=== PATIENT | female | born 1980 | race Caucasian/White ===

== ENCOUNTER → 2022-12-18 07:57 | Outpatient (CLI) | payer OTHER, SELFPAY ==
[2022-12-18 08:44] LABS: Add Manual Diff / Slide Review NO; Basophils Absolute Auto 100 /uL (0-100); Eosinophils Absolute Auto 200 /uL (0-450); Hematocrit 41.7 % (36-46); Hemoglobin 14.1 g/dL (12.0-16.0); Lymphocytes Absolute Auto 1500 /uL (1100-4500); Lymphocytes Percent Auto 21.3 % (25-40); Mean Corpuscular HGB Conc 33.8 % (30-36); Mean Corpuscular Hemoglobin 29.3 PG (26-34); Mean Corpuscular Volume 86.6 fL (80-100); Monocytes Absolute Auto 500 /uL (0-900); Monocytes Percent Auto 7.5 % (3-14); Neutrophils Absolute Auto 4700 /uL (1500-7000); Neutrophils Percent Auto 67.2 % (50-75); Platelet Count 275 X10^3/uL (150-400); Red Blood Cell Count 4.81 X10^6/uL (4.0-5.2); Red Cell Distribution Width 13.8 % (11.6-14.8)
[2022-12-18 09:42] LABS: HEMOLYSIS < 15 (0-50); Iron 70 ug/dL (37-170)
[2022-12-18 09:52] LABS: Alanine Aminotransferase 18 IU/L (<35); Albumin 3.9 g/dL (3.5-5.0); Albumin Globulin Ratio 1.2 (1.0-2.8); Alkaline Phosphatase 101 U/L (38-126); Aspartate Aminotransferase 22 IU/L (14-36); BUN Creatinine Ratio 16.4 (6-22); Bilirubin Total 0.3 mg/dL (0.2-1.3); Blood Urea Nitrogen 11 mg/dL (7-17); Calcium 8.9 mg/dL (8.4-10.2); Carbon Dioxide 25 mmol/L (22-32); Chloride 101 mmol/L (98-107); Estimated Glomerular Filt Rate > 60 mL/min (>60); Globulin 3.3 g/dL (1.7-4.1); Glucose 97 mg/dL (70-100); HEMOLYSIS < 15 (0-50); Potassium 4.3 mmol/L (3.4-5.1); Sodium 137 mmol/L (137-145); Total Protein 7.2 g/dL (6.3-8.2)
[2022-12-18 09:53] LABS: Percent Iron Saturation 19 % (15-50); Total Iron Binding Capacity 366 ug/dL (265-497); Transferrin 283 mg/dL (206-381)
[2022-12-18 09:54] LABS: Free T3, Triiodothyronine Free 4.14 pg/mL (2.77-5.27); Free T4, Direct Thyroxine 1.09 ng/dL (0.78-2.19)
[2022-12-18 10:05] LABS: Vitamin D 25 Hydroxy (D3) 50.1 ng/mL (30.0-100.0)
[2022-12-18 10:08] LABS: Thyroid Stimulating Hormone 1.65 uIU/mL (0.47-4.68)
[2022-12-18 10:26] LABS: Ferritin 21 ng/mL (6-137)
[2022-12-18 10:41] LABS: Vitamin B12 694 pg/mL (239-931)
[2022-12-21 10:22] LABS: Insulin Level Total 8.1 uIU/mL (2.6-24.9)
[2022-12-24 05:52] LABS: Magnesium, RBC 5.3 mg/dL (4.2-6.8)
[2022-12-24 22:32] LABS: Folate, RBC >1455 ng/mL (>498); Hematocrit 42.6 % (34.0-46.6); Hemolysate >620.0 ng/mL (Not Estab.)
== END ==
PROVIDERS: PCP Family Medicine; Referring Provider Family Medicine; Visit Provider Family Medicine
DX: D53.9 Nutritional anemia, unspecified (principal); E03.9 Hypothyroidism, unspecified; E28.2 Polycystic ovarian syndrome; E55.9 Vitamin D deficiency, unspecified; E66.9 Obesity, unspecified; F32.A Depression, unspecified; F41.9 Anxiety disorder, unspecified; G47.00 Insomnia, unspecified; N92.0 Excessive and frequent menstruation with regular cycle; R73.9 Hyperglycemia, unspecified
CPT/HCPCS: 36415; 80053; 82306; 82607; 82728; 82747; 83525; 83540; 83550; 83735; 84439; 84443; 84481; 85014; 85025

== ENCOUNTER → 2023-02-17 09:00 | Outpatient (CLI) | payer OTHER, SELFPAY ==
--- NOTE | 2023-02-17 09:01 | DI.RAD.S_ITS ---
PROCEDURE: XR FOOT RT MIN 3V INDICATIONS: Toe pain TECHNIQUE: 3 views of the foot were acquired. COMPARISON: None. FINDINGS: Bones: No fractures or dislocations. Well-defined plantar and dorsal calcaneal enthesophytes are seen. Mild right foot osteoarthritic changes are seen with joint space narrowing and subchondral sclerosis more notably involving interphalangeal joints. No suspicious bony lesions. Soft tissues: No tibiotalar joint effusion. Achilles tendon appears normal. IMPRESSION: Mild right foot osteoarthritis. No fracture or dislocation. Calcaneal enthesophytes. Dictated by: Pierre Cherry M.D. on 02/17/2023 at 11:32 Approved by: Pierre Cherry M.D. on 02/17/2023 at 11:32
== END ==
PROVIDERS: PCP Nurse Practitioner; Referring Provider Student in an Organized Health Care Education/Training Program; Visit Provider Student in an Organized Health Care Education/Training Program
DX: M19.071 Primary osteoarthritis, right ankle and foot (principal); M77.31 Calcaneal spur, right foot; M79.674 Pain in right toe(s)
CPT/HCPCS: 73630

== ENCOUNTER → 2023-02-21 14:21 | Outpatient (CLI) | payer OTHER, SELFPAY ==
[2023-02-21 19:40] LABS: Free T3, Triiodothyronine Free 3.73 pg/mL (2.77-5.27); Free T4, Direct Thyroxine 1.14 ng/dL (0.78-2.19)
[2023-02-21 19:53] LABS: Thyroid Stimulating Hormone 1.48 uIU/mL (0.47-4.68)
[2023-02-25 19:14] LABS: Anti Thyroglobulin Antibody <1.0 IU/mL (0.0-0.9); Thyroid Peroxidase Antibodies 19 IU/mL (0-34)
[2023-02-25 20:10] LABS: HIV 1 & 2 Ab/Ag 4th Gen Combo NEGATIVE (NEGATIVE); Hep C Virus Ab w/Reflex Quant NEGATIVE s/c (NEGATIVE)
== END ==
PROVIDERS: PCP Nurse Practitioner; Referring Provider Nurse Practitioner; Visit Provider Nurse Practitioner
DX: F32.A Depression, unspecified (principal); F41.9 Anxiety disorder, unspecified; G47.00 Insomnia, unspecified; Z11.4 Encounter for screening for human immunodeficiency virus [HIV]; Z11.59 Encounter for screening for other viral diseases
CPT/HCPCS: 36415; 84439; 84443; 84481; 86376; 86800; 86803; 87389

== ENCOUNTER → 2023-08-01 20:05 | Outpatient (CLI) | payer OTHER, SELFPAY | PROVIDERS: PCP Nurse Practitioner; Referring Provider Family Medicine; Visit Provider Family Medicine | DX: Z23 Encounter for immunization (principal) | CPT/HCPCS: 90471; 90686 ==